=== PATIENT | male | born 1990 | race Caucasian/White ===

== ENCOUNTER → 2024-12-20 13:39 | Outpatient (REF) | payer BC, SELFPAY | LOC: HWRAD 13:39 | PROVIDERS: ATTENDING PHYSICIAN Family Medicine | DX: R10.9 Unspecified abdominal pain (principal); D29.22 Benign neoplasm of left testis | CPT/HCPCS: 76770; 76870; 93976 ==

== ENCOUNTER → 2025-01-03 13:50 | Outpatient (REF) | payer BC, SELFPAY | LOC: HWRAD 13:50 | PROVIDERS: ATTENDING PHYSICIAN Family Medicine | DX: R10.10 Upper abdominal pain, unspecified (principal); D29.22 Benign neoplasm of left testis | CPT/HCPCS: 76700 ==